=== PATIENT | female | born 1985 | race Hispanic/Latino ===

== ENCOUNTER → 2019-10-02 | Outpatient (CLI) | payer OTHER ==
[~2019-10-02] MED LIST: METHACHOLINE KIT (J7674) INH ONE
--- NOTE | 2019-10-02 13:48 | PFTRPT ---
Height: 67.50 Inches Weight: 302.00 Lbs BSA: 2.42 Diagnosis: R05 DATE OF STUDY: 10/02/2019 ORDERED BY: Alfredo Bronson INTERPRETATION: Under protocol, methacholine was administered. Even after a maximal dose of 25 mg (188.875 CDUs), no provocation dose ever achieved. IMPRESSION: Negative methacholine challenge study. MTDD
== END ==
LOC: M CARPUL 12:33
PROVIDERS: ATTEND Physician Assistant
DX: R05 Cough (principal)
CPT/HCPCS: 94070; J7674